=== PATIENT | female | born 1990 | race Caucasian/White ===

== ENCOUNTER 2018-04-05 06:25 | Inpatient (IN) | payer OTHER ==
[2016-08-27 14:18] VITALS: BMI 21.7
[2018-04-05] MEDS ORDERED: Lactated Ringer's 1,000 ML IV ONE (07:03)
[2018-04-05] MEDS ORDERED: Oxytocin 30 UNIT 30 UNITS/500 ML BAG IV SCH (07:30)
[2018-04-05] MEDS ORDERED: Oxytocin 30 UNIT 30 UNITS/500 ML BAG IV ONE ×2 (07:54→16:38)
[2018-04-05 08:19] LABS: BASO % 0.2 % (0.0-2.0); EOS # 0.1 K/uL (0.0-0.7); EOS % 1.4 % (0.0-4.0); LYMPH # 1.9 K/uL (1.0-4.3); MEAN CELL VOLUME 89.2 fL (81.0-99.0); MEAN CORPUSCULAR HEMOGLOBIN 30.9 pg (27.0-31.0); MEAN CORPUSCULAR HGB CONC 34.6 g/dL (33.0-37.0); MEAN PLATELET VOLUME 8.9 fL (7.2-11.7); MONO # 0.8 K/uL (0.0-0.8); MONO % 11.2 % (0.0-10.0); NEUT # 4.1 K/uL (1.8-7.0); NEUT % 59.2 % (50.0-75.0); RBC 3.55 Mil/uL (3.80-5.20); RED CELL DISTRIBUTION WIDTH 16.6 % (11.5-14.5); WHITE BLOOD COUNT 6.9 K/uL (4.8-10.8)
[2018-04-05 08:24] LABS: SQUAMOUS EPITHIAL 1 /hpf (0-5); URINE BACTERIA RARE (<OCC); URINE BILIRUBIN NEGATIVE (NEGATIVE); URINE BLOOD NEGATIVE (NEGATIVE); URINE CLARITY Clear (Clear); URINE COLOR Colorless (YELLOW); URINE GLUCOSE (UA) NORMAL (Normal); URINE LEUKOCYTE ESTERASE NEG Leu/uL (Negative); URINE PROTEIN NEGATIVE (NEGATIVE); URINE UROBILINOGEN NORMAL mg/dL (0.2-1.0)
[2018-04-05 08:34] LABS: ALB/GLOB RATIO 1.2 (1.0-2.1); ALBUMIN 3.4 g/dL (3.5-5.0); ALT/SGPT 25 U/L (9-52); AST/SGOT 25 U/L (14-36); BLOOD UREA NITROGEN 3 mg/dL (7-17); CALCIUM 8.9 mg/dl (8.6-10.4); GFR AFRICAN-AMERICAN > 60; GFR NON-AFRICAN AMERICAN > 60
--- NOTE | 2018-04-05 10:11 | OBADHP ---
Datetime: 04/05/2018 10:05 Admit Comment, IP Provider: @ 38.5 wks GA JOSUE c/o ctx pain that started last night nowe ever y 5 min incresaign intesnty and freqeuncy, 03/16. pt dnies any lof, vb. Pt als rperots decrased mvomentes form thruday with intense itching on abodmen adn body. Pt was seen by PDM on Thursday adn adv ised for immediate evluatin for cholestasis. 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 PMH: Denies PSH Denies FHX: non contbiyuory MEDS: PNV, Iron NKDA SHX: negative x 3 A/P @ 38.5 wks GA for augmentation for cholestasis of admit to L+D npo, ivf admission labs cotn toco and efm analgesia prn pitiocin as per protocoel Pelvic Type - PN: Adequate Extremities - PN: Normal Abdomen - PN: Normal Back - PN: Normal Breast - PN: Normal Lungs - PN: Normal Heart - PN: Normal Thyroid - PN: Normal Neurologic - PN: Normal HEENT - PN: Normal General - PN: Normal Presentation-Admit: Vertex FHR - Baseline A Provider: 130 Membranes, Provider: Intact Contraction Comments Provider: q 5-7 min Comments, ACOG Physical Exam: excoritaions on abdomen no gross rahs Gestation - Est Wks by US: 38.5 IP Hx Assessment: The History has been Reviewed and is Current Vital Signs Provider: Reviewed; Within Normal Limits IP Chief Complaint: Uterine contractions; Decreased movement; Other NICHD Variability Prov Fetus A: Moderate 6-25bpm FHR Category Provider Fetus A: Category I NICHD Decel Fetus A IP Provider: None Dilatation, Provider: 3 Effacement, Provider: 60 Station, Provider: -2 Genitourinary Exam: Normal DTRs - PN: Normal EGA AdmitDate IP: 38.5 IP Adm Impression: Term, intrauterine IP Admit Plan: Admit to unit
[2018-04-05] MEDS ORDERED: Bupivacaine HCl/FentaNYL Cit 100 ML EPI ONE ×2 (13:40→20:57)
--- NOTE | 2018-04-05 14:20 | OBPN ---
Datetime: 04/05/2018 14:17 IP Progress Impression: Normal progression of labor; Reassuring heart rate IP Procedures: Artificial ROM IP Progress Plan: Continue present management Membranes, Provider: Ruptured Amniotic Fluid Color, Provider: Clear FHR - Baseline A Provider: 120 Gestation - Est Wks by US: 38.5 Presentation-Admit: Vertex Vital Signs Provider: Reviewed; Within Normal Limits FHR Category Provider Fetus A: Category I NICHD Variability Prov Fetus A: Moderate 6-25bpm Dilatation, Provider: 4 Effacement, Provider: 60 Station, Provider: -2 NICHD Decel Fetus A IP Provider: None Datetime: 04/05/2018 10:05 Contraction Comments Provider: q 5-7 min
--- NOTE | 2018-04-05 16:46 | OBPN ---
Datetime: 04/05/2018 16:38 IP Progress Impression: Normal progression of labor IP Progress Plan: Continue present management Membranes, Provider: Ruptured Contraction Comments Provider: q 2- 3mn FHR - Baseline A Provider: 120 Gestation - Est Wks by US: 38.5 Presentation-Admit: Vertex IP Progress Note Comment: pt seen adn examiend for prgisosn britt labos s/p epidural VSS VE: 6cm EFM Cat I TOCO: q 2-4 min A/P @ 38.5 wks GA in labor cont pitocn s per protocol possible iupc cont curretn managment Vital Signs Provider: Reviewed; Within Normal Limits NICHD Accel Fetus A IP Provider: 15X15 FHR Category Provider Fetus A: Category I NICHD Variability Prov Fetus A: Moderate 6-25bpm Dilatation, Provider: 6 Effacement, Provider: 70 Station, Provider: -1
[2018-04-05] MEDS ORDERED: AMPicillin 2 GM in Sodium Chloride 0.9% 100 ML IVPB SCH (21:15)
--- NOTE | 2018-04-05 22:23 | OBPN ---
Datetime: 04/05/2018 22:17 IP Progress Impression: Normal progression of labor; Non-reassuring heart rate IP Progress Plan: Continue present management; Anticipate Vaginal Delivery Membranes, Provider: Ruptured Contraction Comments Provider: q 2- 3min FHR - Baseline A Provider: 150 Gestation - Est Wks by US: 38.5 Presentation-Admit: Vertex IP Progress Note Comment: pt seen and examiend pt with recurrent variable decleration depseit oxgyen , left lataerl ivh s/p epdural VE: temp 100.4 FME: Cat II TOCO: q 2- 3mn A/P @ 38.5 wks GA fully dilated -start pushing -anticipate nsv -resuctionation -amp, gent for choriomaniotis Vital Signs Provider: Reviewed Vital Signs Provider Details: Temp 100.4 FHR Category Provider Fetus A: Category II NICHD Variability Prov Fetus A: Moderate 6-25bpm Dilatation, Provider: 10 Effacement, Provider: 100 Station, Provider: 0 NICHD Decel Fetus A IP Provider: Variable
[2018-04-06] MEDS ORDERED: Lidocaine 2% MPF (5 ml) Inj ONE ×2 (00:39)
--- NOTE | 2018-04-06 00:56 | OBDS ---
DELIVERY PERSONNEL Delivery Doctor: Chen Reyna MD Scrub Nurse: Janeth Corley Environmental Sustainability Manager: Cassidy Dominguez RN Anesthesiologist: eliana MATERNAL INFORMATION Delivery Anesthesia: Epidural Medications in Delivery: pitocin 20 units Placenta Cultured: No Maternal Complications: None; Other Other Maternal Complications: IOL FOR CHOLESTASIS OF Provider Comments: pt was fully dilated and pushing, verbal consent for episitomy and vacumn, right medio-lateral episitoimy performed, atraumtic, spontaneous deilvey of head, vacumn released,followed by delivery of the shoulders followed by delivery of the body. both oral and nasal passages of the ba by were bulb suctioned. Umbilcal cord was clamped and cut. baby handed to mother on abdomen with rn assistance. cord blood and cord gases collected and sent x 2. Spontaneous delivery of intact placent a with membranes. fundus firm, good hemostasis, right mediolateral episitomy reparied with with 2-0 and 3-0 chormic. Good hemostaiss, no complications. Live male agpasr 9,9 weight of 6lbs 5 ounces ebl 400ml LABOR SUMMARY EDC: 04/14/2018 00:00 No. Babies in Womb: 1 Attempted: No Labor Anesthesia: Epidural LABOR INFORMATION Reason for Induction: Other Onset of Labor: 04/05/2018 06:00 Oxytocin: Induction Group B Beta Strep: Negative Steroids Given: None Reason Steroids Not Administered: Not Applicable MEMBRANES Membranes Rupture Method: Artificial Rupture of Membranes: 04/05/2018 11:26 Length of Rupture (hrs): 13.12 Amniotic Fluid Color: Clear Amniotic Fluid Amount: Moderate Amniotic Fluid Odor: Normal STAGES OF LABOR Stage 3 hrs: 0 Stage 3 min: 9 Total Time in Labor hrs: 18 Total Time in Labor min: 42 BABY A INFORMATION Infant Delivery Date/Time: 04/06/2018 00:33 Method of Delivery: Vaginal Born in Route : No : N/A Vacuum Extraction: Successful ASSISTED DELIVERY BABY A Indication for Assisted Delivery: Non reassuring heart tracing Catheter Prior to Procedure: Yes Vacuum Number of Pulls: 2 Vacuum Number of PopOffs: 1 Vacuum Maximum Pressure Obtained: 50 Reduce Pressure btwn Ctx: Yes Vacuum Medical Supervisor: [employer] 11 M STYLE MUSHROOM CUP SHOULDER DYSTOCIA BABY A Infant Delivery Date/Time: 04/06/2018 00:33 PRESENTATION/POSITION BABY A Presentation: Cephalic Cephalic Presentation: Vertex Vertex Position: Right Occipital Posterior Breech Presentation: N/A PLACENTA INFORMATION BABY A Placenta Delivery Time : 04/06/2018 00:42 Placenta Method of Delivery: Spontaneous Placenta Status: Delivered SCORES BABY A Heart Rate 1 min: >100 bpm Resp Effort 1 min: Good Cry Reflex Irritability 1 min: Cough or Sneeze or Pulls Away Muscle Tone 1 min: Active Motion Color 1 min: Body [place], Extremities Blue SCORE 1 MIN: 9 Heart Rate 5 min: >100 bpm Resp Effort 5 min: Good Cry Reflex Irritability 5 min: Cough or Sneeze or Pulls Away Muscle Tone 5 min: Active Motion Color 5 min: Body [place], Extremities Blue SCORE 5 MIN: 9 INFORMATION BABY A Gestational Age at Delivery: 38.5 Gestational Status: Term Outcome : Liveborn Condition : Stable Infant Sex: Male IDENTIFICATION/MEDS BABY A ID Band Number: [id number] Sensor Number: [id number] WEIGHT/LENGTH BABY A Infant Birthweight (gms): 3685 Infant Weight (lb): 8 Infant Weight (oz): 2 Infant Length Inches: 20.00 Infant Length cms: 50.8 CORD INFORMATION BABY A No. Cord Vessels: 3 Nuchal Cord : N/A Cord Blood Taken: Yes Infant Suction: Mouth ASSESSMENT BABY A Complications: Other Complications Other: infant was pale Physical Findings at Delivery: [employer] Worker/ALS Called : Yes Infant Care By: dr ANDERSON AND CLAU CRAIG RN Transferred To: [facility]
[2018-04-06] MEDS ORDERED: Benzocaine/Menthol 20%-0.5% Topical Spray (60 ml) TOP PRN (00:57)
[2018-04-06] MEDS ORDERED: Oxycodone/Acetaminophen 5/325 mg Tab PO PRN ×2 (00:57)
[2018-04-06 07:49] LABS: BASO % 0.2 % (0.0-2.0); EOS % 0.1 % (0.0-4.0); HEMOGLOBIN 11.7 g/dL (11.0-16.0); LYMPH # 1.4 K/uL (1.0-4.3); LYMPH % 7.5 % (20.0-40.0); MEAN CELL VOLUME 89.5 fL (81.0-99.0); MEAN CORPUSCULAR HEMOGLOBIN 30.7 pg (27.0-31.0); MEAN CORPUSCULAR HGB CONC 34.3 g/dL (33.0-37.0); MEAN PLATELET VOLUME 9.3 fL (7.2-11.7); MONO # 1.7 K/uL (0.0-0.8); MONO % 8.7 % (0.0-10.0); NEUT # 16.1 K/uL (1.8-7.0); NEUT % 83.5 % (50.0-75.0); PLATELET COUNT 155 K/uL (130-400); RBC 3.81 Mil/uL (3.80-5.20); RED CELL DISTRIBUTION WIDTH 16.3 % (11.5-14.5)
[2018-04-06 07:53] LABS: WHITE BLOOD COUNT 19.3 K/uL (4.8-10.8)
[2018-04-06] MEDS: Multiple Vitamins Tab PO SCH (09:44)
[2018-04-06 10:03] LABS: ANISOCYTOSIS SLIGHT; BANDS 12 % (0-2); LYMPHOCYTE 6 % (20-40); MONOCYTE 9 % (0-10); NEUTROPHIL 73 % (50-75); PLATELET ESTIMATE NORMAL (NORMAL); POIKILOCYTOSIS SLIGHT; TOTAL CELLS COUNTED 100
[2018-04-06 10:04] LABS: HYPOCHROMIC SLIGHT; TARGET CELLS SLIGHT
[2018-04-06] MEDS: AMPicillin 2 GM in Sodium Chloride 0.9% 100 ML IVPB SCH ×2 (13:26→18:41)
[2018-04-07] MEDS: AMPicillin 2 GM in Sodium Chloride 0.9% 100 ML IVPB SCH ×2 (00:30→06:00)
[2018-04-07 08:15] LABS: BASO % 0.1 % (0.0-2.0); EOS # 0.1 K/uL (0.0-0.7); EOS % 0.8 % (0.0-4.0); LYMPH # 2.5 K/uL (1.0-4.3); LYMPH % 15.8 % (20.0-40.0); MEAN CORPUSCULAR HEMOGLOBIN 30.5 pg (27.0-31.0); MEAN CORPUSCULAR HGB CONC 33.9 g/dL (33.0-37.0); MEAN PLATELET VOLUME 9.2 fL (7.2-11.7); MONO # 1.3 K/uL (0.0-0.8); MONO % 8.1 % (0.0-10.0); NEUT # 11.8 K/uL (1.8-7.0); NEUT % 75.2 % (50.0-75.0); RBC 3.59 Mil/uL (3.80-5.20); RED CELL DISTRIBUTION WIDTH 16.4 % (11.5-14.5); WHITE BLOOD COUNT 15.8 K/uL (4.8-10.8)
[2018-04-07 08:32] LABS: BLOOD UREA NITROGEN 4 mg/dL (7-17); CALCIUM 8.6 mg/dl (8.6-10.4); GFR AFRICAN-AMERICAN > 60; GFR NON-AFRICAN AMERICAN > 60
[2018-04-07] MEDS: Multiple Vitamins Tab PO SCH (09:05)
[2018-04-08 07:20] LABS: BASO % 0.2 % (0.0-2.0); EOS # 0.2 K/uL (0.0-0.7); EOS % 1.5 % (0.0-4.0); HEMOGLOBIN 11.1 g/dL (11.0-16.0); LYMPH # 2.8 K/uL (1.0-4.3); MEAN CELL VOLUME 89.2 fL (81.0-99.0); MEAN CORPUSCULAR HEMOGLOBIN 30.6 pg (27.0-31.0); MEAN CORPUSCULAR HGB CONC 34.2 g/dL (33.0-37.0); MEAN PLATELET VOLUME 8.9 fL (7.2-11.7); MONO # 0.8 K/uL (0.0-0.8); MONO % 6.7 % (0.0-10.0); NEUT % 67.6 % (50.0-75.0); RBC 3.62 Mil/uL (3.80-5.20); RED CELL DISTRIBUTION WIDTH 16.9 % (11.5-14.5); WHITE BLOOD COUNT 11.8 K/uL (4.8-10.8)
[2018-04-08] MEDS: Multiple Vitamins Tab PO SCH (09:34)
[2018-04-08 10:05] VITALS: BP 107/60; PULSE 74; RESP 18; TEMP 98.4
--- NOTE | 2018-04-08 11:10 | OBPPN ---
Datetime: 04/08/2018 11:08 PP Pain Prov: Within normal limits PP Nausea Prov: Denies PP Flatus Prov: Yes PP BM Prov: Yes PP Breasts Prov: Normal PP Heart Prov: Normal PP Lungs Prov: Normal PP Abdomen/Uterus Prov: Normal PP Lochia Prov: Normal PP Vulva/Perineum Prov: Normal PP CVA Tenderness Prov: Normal PP Extremities Prov: Normal PP C/S Incision Prov: Not Applicable PP Progress Prov: Normal PP Comments Phys Exam Prov: abd; softn, nt, nd uterien no tendner fudnsu firm, belwo wevle of umbis epissotmy c/d/i minial lochai non fouls msellign PP Impression Prov: Normal progression PP Plan Prov: Discharge PP Progress Note Prov: pt seen adn examiend adn reports pain controleld. pt ambauting, boidng, passi ng flauts, roleratine reular diet, no fever, chils naseu vmoitng VSS PE see above A/P s/p SNVED PPD #2 doing well dc home rto 6 weeks precauiton given Vital Signs Provider PP: Reviewed; Within Normal Limits
--- NOTE | 2018-04-08 11:10 | OBDCSUM ---
Datetime: 04/08/2018 11:09 Discharged to, Provider: Home Follow up at, Provider: Dr peterson Disch Instr Activity: Normal activity Disch Instr Diet: Regular Discharge Instructions, Provider: Routine instructions given Discharge Diagnosis, Provider: Term Delivered Discharge Time: 04/07/2018 11:09 Follow up in weeks, Provider: 6 weeks Disch Referrals: None Contraception discussed, Prov: Yes
[2018-04-08 18:54] VITALS: O2SAT 98
== END 2018-04-08 14:50 | disposition home or self-care (01) | DRG 774 ==
LOC: C.EROB 06:25 → C.9E 07:04 → C.4D 08:03 → C.4M 04-06 04:15
PROVIDERS: ADMIT Obstetrics & Gynecology; ATTEND Obstetrics & Gynecology
PROC: 10907ZC Drainage of Amniotic Fluid, Therapeutic from Products of Conception, Via Natural or Artificial Opening (ICD-10-PCS; 2018-04-05)
PROC: 10D07Z6 Extraction of Products of Conception, Vacuum, Via Natural or Artificial Opening (ICD-10-PCS; principal; 2018-04-06)
PROC: 0W8NXZZ Division of Female Perineum, External Approach (ICD-10-PCS; 2018-04-06)
DX: O26.62 Liver and biliary tract disorders in childbirth (principal); O76 Abnormality in fetal heart rate and rhythm complicating labor and delivery; O75.2 Pyrexia during labor, not elsewhere classified; K83.1 Obstruction of bile duct; O36.8130 Decreased fetal movements, third trimester, not applicable or unspecified; Z3A.38 38 weeks gestation of pregnancy; Z37.0 Single live birth